=== PATIENT | male | born 1975 | race African-American/Black ===

== ENCOUNTER 2021-11-27 20:24 | Emergency (ER) | payer OTHER ==
[~2021-11-27] VITALS: Ht 193 cm; Wt 117.9 kg
[2021-11-27 20:42] VITALS: BP 199/135
== END 2021-11-27 23:27 | disposition left against medical advice (07) ==
LOC: ER 20:24
DX: S10.91XA Abrasion of unspecified part of neck, initial encounter (principal); S80.812A Abrasion, left lower leg, initial encounter; S80.811A Abrasion, right lower leg, initial encounter; Z53.21 Procedure and treatment not carried out due to patient leaving prior to being seen by health care provider; V59.40XA Driver of pick-up truck or van injured in collision with unspecified motor vehicles in traffic accident, initial encounter; Y93.89 Activity, other specified; Y92.89 Other specified places as the place of occurrence of the external cause; Y99.8 Other external cause status
CPT/HCPCS: 70450; 72125

== ENCOUNTER 2025-01-19 20:51 | Emergency (ER) | payer MEDICAID, OTHER ==
[~2025-01-19] VITALS: Ht 193 cm; Wt 113.6 kg
--- NOTE | 2025-01-19 21:05 | ED.PDOC ---
Altered Mental Status HPI Comments 49 year old male came to ER via EMS due to ALOC. Per EMS patient was found unresponsive at a parking lot. Patient was given Narcan that woke him up however patient became agitated and aggressive. Noted a glass vial found with the patients belongings. Possibly drug overdose. Chief Complaint: ALOC Time Seen by MD: 21:05 Reviewed Notes: Nurses Notes, Dismantler Notes Allergies: Coded Allergies: NO KNOWN ALLERGIES (Unverified , 01/19/25) Information Source: Patient, Emergency Med Personnel Mode of Arrival: EMS Severity: Moderate Timing: Minutes Duration: Since onset Prehospital treatment: Restraints, Treatment Quality: Decreased Alertness, Change in Behavior, Confusion Recent: Medication/Drug Abuse Past Medical History PAST MEDICAL HISTORY: Pt Confused Surgical History: Pt Confused Family History Family History: Pt Confused Social History Smoker: Pt Confused Alcohol: Pt Confused Drugs: Pt Confused Lives In: Pt Confused Constitutional: denies: chills, diaphoresis, fatigue, fever, malaise, sweats, weakness, others EENTM: denies: blurred vision, double vision, ear bleeding, ear discharge, ear drainage, ear pain, ear ringing, eye pain, eye redness, hearing loss, mouth pain, mouth swelling, nasal discharge, nose bleeding, nose congestion, nose pain, photophobia, tearing, throat pain, throat swelling, voice changes, others Respiratory: denies: cough, hemoptysis, orthopnea, SOB at rest, shortness of breath, SOB with excertion, stridor, wheezing, others Cardiovascular: denies: chest pain, dizzy spells, diaphoresis, Dyspnea on exertion, edema, irregular heart beat, left arm pain, lightheadedness, palpitations, PND, syncope, others Gastrointestinal: denies: abdomen distended, abdominal pain, blood streaked bowels, constipated, diarrhea, dysphagia, difficulty swallowing, hematemesis, melena, nausea, poor appetite, poor fluid intake, rectal bleeding, rectal pain, vomiting, others Genitourinary: denies: burning, dysuria, flank pain, frequency, hematuria, incontinence, penile discharge, penile sore, pain, testicle pain, testicle swelling, urgency, others Neurological: denies: dizziness, fainting, headache, left sided numbness, left sided weakness, numbness, paresthesia, pre-existing deficit, right sided numbness, right sided weakness, seizure, speech problems, tingling, tremors, weakness, others Musculoskeletal: denies: back pain, gout, joint pain, joint swelling, muscle pain, muscle stiffness, neck pain, others Integumetry: denies: bruises, change in color, change in hair/nails, dryness, laceration, lesions, lumps, rash, wounds, others Allergic/Immunocompromised: denies: Difficulty Healing, Frequent Infections, Hives, Itching, others Hematologic/Lymphatic: denies: anemia, blood clots, easy bleeding, easy bruising, swollen glands, others Endocrine: denies: excessive hunger, excessive sweating, excessive thirst, excessive urination, flushing, intolerance to cold, intolerance to heat, u nexplained weight gain, unexplained weight loss, others Psychiatric: denies: anxiety, bipolar disorder, depression, hopeless, panic disorder, schizophrenia, sleepless, suicidal, others Unable to Obtain due to: Altered Mental Status (Which appears to be due to illicit drug use) Physical Exam General Appearance: Mild Distress (Patient seemed intoxicated at arrival.), Normal HEENT: Normal ENT Inspection, Pharynx Normal, TMs Normal Neck: Full Range of Motion, Non-Tender, Normal, Normal Inspection Respiratory: Chest Non-Tender, Lungs Clear, No Accessory Muscle Use, No Respiratory Distress, Normal Breath Sounds Cardiovascular: No Edema, No JVD, No Murmur, No Gallop, Normal Peripheral Pulses, Regular Rate/Rhythm Breast Exam: Deferred Gastrointestinal: No Organomegaly, Non Tender, No Pulsatile Mass, Normal Bowel Sounds, Soft Genitalia: Deferred Pelvic: Deferred Rectal: Deferred Extremities: No calf tenderness, Normal capillary refill, Normal inspection, Normal range of motion, Non-tender, No pedal edema Musculoskeletal : Apperance: Normal Neurologic: No Motor Deficits, No Sensory Deficits Cerebellar Function: NOT DONE Reflexes: NOT DONE Skin: Dry, Normal Color, Warm Lymphatic: No Adenopathy Was a procedure done? Was a procedure done?: No Differential Diagnosis (ALOC) Differential Diagnosis: Drug Overdose, ETOH Intoxication, Other (Sepsis, electrolyte abnormality) X-Ray, Labs, Meds, VS Vital Signs Date Time Temp Pulse Resp B/P (MAP) Pulse Ox O2 Delivery O2 Flow Rate FiO2 01/19/25 21:45 98.9 116 32 141/97 (112) 100 98.9 4/12/25 21:02 98.9 120 18 131/86 (101) 96 98.9 X-Ray, Labs, Meds, VS Comment Patient refused most Interventional while at the facility. Patient became coherent and stated he did not want to be here. Patient was not put on a 5150 by PD or by us and therefore, after patient denied any suicidal or homicidal ideation, patient was allowed to leave AMA. Patient signed an AMA form prior to discharge. Time of 1ST Reevaluation: 22:06 Reevaluation 1ST: Unchanged Consultation: PCP Patient Education/Counseling: Diagnosis, Treatment Family Education/Counseling: Diagnosis, Treatment, No Family Present Departure 1 Departure Time of Disposition: 22:06 Impression: Primary Impression: Illicit drug use Disposition: LEFT AGAINST MEDICAL ADVICE Condition: Fair Discharged With: Self Critical Care Note Critical Care Time?: No Stability Stability form required: No Heart Score Heart Score: Heart Score Response (Comments) Value History N/A 0 EKG N/A 0 Age N/A 0 Risk Factors N/A 0 Troponin N/A 0 Total 0 I personally scribed for ASHLEY GARCÍA PAC ([email or web address]) on 01/19/25 at 21:05. Electronically submitted by Og Carrillo ([email or web address]). ASHLEY GARCÍA PAC Jan 19, 2025 21:05
[2025-01-19] MEDS ORDERED: NALOXONE HCL 0.4 MG/ML VIAL IM ONE (21:15)
[2025-01-19 21:45] VITALS: BP 141/97; PULSE 116; RESP 32; TEMP 98.9; O2SAT 100
== END 2025-01-19 22:02 | disposition left against medical advice (07) ==
LOC: EDBD 20:51 → ER 20:51
DX: F19.10 Other psychoactive substance abuse, uncomplicated (principal); R40.4 Transient alteration of awareness; R45.1 Restlessness and agitation